=== PATIENT | male | born 1960 | race American Indian/Alaskan Native ===

== ENCOUNTER 2018-04-11 08:22 | Day surgery (SDC) | payer MEDICARE ==
[2018-04-11 08:55] VITALS: BMI 29.9
[2018-04-11] MEDS ORDERED: Propofol 10 mg/ml Inj (20 ML) ONE (10:21)
[2018-04-11 11:05] VITALS: TEMP 98.4
[2018-04-11 11:48] VITALS: O2SAT 99
[2018-04-11 11:51] VITALS: BP 148/81; PULSE 80; RESP 16
== END 2018-04-11 11:53 | disposition home or self-care (01) ==
LOC: C.ENDO 08:22
PROVIDERS: ATTEND Internal Medicine Gastroenterology
DX: D12.2 Benign neoplasm of ascending colon (principal); D12.5 Benign neoplasm of sigmoid colon; D12.3 Benign neoplasm of transverse colon; K62.1 Rectal polyp; K64.8 Other hemorrhoids; K57.90 Diverticulosis of intestine, part unspecified, without perforation or abscess without bleeding
CPT/HCPCS: 45388; 88305; J2704